=== PATIENT | female | born 1980 | race Caucasian/White ===

== ENCOUNTER 2017-05-11 11:47 | Emergency (ER) | payer OTHER ==
[2017-05-11 11:57] VITALS: BP 102/66; PULSE 72; TEMP 97.8; BMI 21.7
[2017-05-11] MEDS ORDERED: KETOROLAC TROMETHAMINE 60 MG/2 ML VIAL IM ONE (12:33)
[2017-05-11] MEDS ORDERED: CYCLOBENZAPRINE HCL 10 MG TABLET (FP) PO ONE (12:33)
--- NOTE | 2017-05-11 12:38 | PDOC ---
History of Present Illness - General Chief Complaint: Pain Stated Complaint: PAIN/ NECK, SHOULDERS Time Seen by Provider: 05/11/17 12:26 History Source: Patient Exam Limitations: No Limitations - History of Present Illness Initial Comments: 05/11/17 12:34 Patient states was shoveling snow approximately 3 weeks ago when she felt a strain and pull in her right shoulder. States is suffering from muscle spasm in the back and has had spasm in that shoulder since that time. States his use ibuprofen, and had her sister, massage therapist, attempt to massage her shoulder. Was told by her sister that she had severe spasm and that she needed some antispasmodic medications another therapy. Patient denies numbness or tingling to hand, denies fever, no other injury. Severity: reports: moderate Pain Location: reports: back, neck Method of Injury: Yes: other (shovelling snow 3 weeks ago) Modifying Factors: improves with: None Loss of Consciousness: no loss of consciousness Associated Symptoms (Fall): headache, muscle spasms Past History - Travel Traveled outside of the country in the last 30 days: No Close contact w/someone who was outside of country & ill: No - Past Medical History Allergies/Adverse Reactions: Allergies Allergy/AdvReac Type Severity Reaction Status Date / Time No Known Allergies Allergy Verified 05/11/17 11:57 Home Medications: Ambulatory Orders Moxifloxacin HCl [Vigamox 0.5% -] 1 drop OP TID #1 bottle 09/29/15 Cyclobenzaprine HCl 10 mg PO Q8H PRN #14 tablet 05/11/17 Ibuprofen 400 mg PO Q6H PRN #30 tablet 05/11/17 COPD: No - Immunization History Immunization Up to Date: Yes - Suicide/Smoking/Psychosocial Hx Smoking Status: Yes Smoking History: Current every day smoker Have you smoked in the past 12 months: Yes Number of Cigarettes Smoked Daily: 20 Cigars Per Day: 0 Information on smoking cessation initiated: No Hx Alcohol Use: Yes (occasional) Drug/Substance Use Hx: No Substance Use Type: None Trauma Specific PMHX - Complaint Specific PMHX Back Injury: Yes Neck Injury: Yes Review of Systems - Review of Systems Able to Perform ROS?: Yes Is the patient limited Micronesian proficient: Yes Constitutional: Yes: Symptoms Reported, See HPI, Malaise HEENTM: No: Symptoms Reported Respiratory: Yes: See HPI. No: Symptoms reported Musculoskeletal: Yes: Symptoms Reported, See HPI, Neck Pain Neurological: Yes: Symptoms reported, See HPI All Other Systems: Reviewed and Negative *Physical Exam - Vital Signs Last Vital Signs Temp Pulse Resp BP Pulse Ox 97.8 F 72 18 102/66 100 05/11/17 11:54 05/11/17 11:54 05/11/17 11:54 05/11/17 11:54 05/11/17 11:54 - Physical Exam General Appearance: Yes: Nourished, Appropriately Dressed HEENT: positive: MARIBEL, Normal ENT Inspection, Normal Voice, TMs Normal, Pharynx Normal, Nasal Congestion, Rhinorrhea Neck: positive: Tender, Supple, Other (palpable spasm noted to the right sided paravertebral spinous muscles, no crepitus or step-offs along the vertebral spine.Range of motion is limited secondary to this stiffness. 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 We'll treat with NSAIDs and cyclobenzaprine *DC/Admit/Observation/Transfer Diagnosis at time of Disposition: Cervical myofascial strain Qualifiers: Encounter type: initial encounter Qualified Code(s): S16.1XXA - Strain of muscle, fascia and tendon at neck level, initial encounter - Discharge Dispostion Disposition: HOME Condition at time of disposition: Stable Admit: No - Referrals Referrals: Obi Moses [Primary Care Provider] - - Patient Instructions Printed Discharge Instructions: DI for Cervical Muscle Strain Additional Instructions: Rest, no heavy lifting or exercise until pain is resolved Hot soaks to neck and low back as often as possible/hot showers or Jacuzzis No massage or therapy until spasm is gone Continue ibuprofen 2-200 mg tablets every 6 hours for the next 3 days then as needed for pain and swelling Cyclobenzaprine 1-10mg every 8 hours as needed for spasm If not significant improvement within 24 hours with medication and rest regime, followup with private physician for change in medications and /or therapy. - Post Discharge Activity Forms/Work/School Notes: Back to Work
[2017-05-11] MEDS ORDERED: KETOROLAC TROMETHAMINE 60 MG/2 ML VIAL ONE (12:42)
[2017-05-11] MEDS ORDERED: CYCLOBENZAPRINE HCL 10 MG TABLET (FP) ONE (12:42)
== END 2017-05-11 12:50 | disposition home or self-care (01) ==
LOC: JERFT 11:47
DX: S16.1XXA Strain of muscle, fascia and tendon at neck level, initial encounter (principal); X50.0XXA Overexertion from strenuous movement or load, initial encounter; Y93.H1 Activity, digging, shoveling and raking; Y92.89 Other specified places as the place of occurrence of the external cause; Y99.8 Other external cause status
CPT/HCPCS: 99281-25